=== PATIENT | female | born 1930 | race Asian ===

== ENCOUNTER 2016-11-10 19:30 | Emergency (ER) | payer OTHER ==
[~2016-11-10] VITALS: Ht 170.2 cm; Wt 83.9 kg
[~2016-11-10 19:30] MED LIST: ALLO300T23 PO; CELEBREX200 MG PO; POT CHLORIDE10 ME1 OR; RIVADIS4 TOP; TRIA37.541 PO; VITAMIN D5000 UNIT OR
[2016-11-10 21:20] LABS: PLATELET COUNT 225 K/uL (152-353)
[2016-11-10 21:30] LABS: POTASSIUM 4.7 mmol/L (3.6-5.2)
[2016-11-10 21:55] VITALS: BP 170/84; TEMP 98.7
== END 2016-11-10 21:55 | disposition home or self-care (01) ==
LOC: ED 19:30
PROVIDERS: Specialist
DX: R10.84 Generalized abdominal pain (principal)
CPT/HCPCS: 80048; 85027; 99283

== ENCOUNTER 2017-01-27 14:36 | Outpatient (CLI) | payer OTHER | END 2017-01-27 19:09 | disposition home or self-care (01) | LOC: LAB 14:36 | DX: N39.0 Urinary tract infection, site not specified (principal) | CPT/HCPCS: 81000; 87086; 87088 ==

== ENCOUNTER 2017-05-14 18:38 | Observation (INO) | payer OTHER ==
[~2017-05-14] VITALS: Ht 170.2 cm; Wt 109.5 kg
[2017-05-14 19:08] LABS: POTASSIUM 3.9 mmol/L (3.6-5.2)
[2017-05-14 19:15] VITALS: BP 125/66; TEMP 98.2
[2017-05-14 20:00] VITALS: BP 138/86; TEMP 97.5
[2017-05-14 20:14] LABS: PLATELET COUNT 132 K/uL (152-353)
[2017-05-15] VITALS: BP 142/90; TEMP 98.1
[2017-05-15 01:46] VITALS: BP 138/86; TEMP 97.5; Ht 170.2 cm; Wt 109.5 kg
[2017-05-15 04:00] VITALS: BP 137/85; TEMP 98
[2017-05-15] MEDS ORDERED: K-TAB20 MEQ PO ×2 (04:49)
[2017-05-15] MEDS ORDERED: ALLO300T23 PO ×2 (04:50)
[2017-05-15] MEDS ORDERED: DONE5TAB PO ×2 (04:51)
[2017-05-15 08:00] VITALS: BP 138/78; TEMP 97.8
[2017-05-15 12:00] VITALS: BP 131/81
[2017-05-15 16:00] VITALS: BP 120/73; TEMP 97.3
== END 2017-05-15 18:07 | disposition home or self-care (01) ==
LOC: ED 18:38 → MED/SURG 20:40
PROVIDERS: ADMIT Emergency Medicine
DX: S32.018A Other fracture of first lumbar vertebra, initial encounter for closed fracture (principal); W19.XXXA Unspecified fall, initial encounter; Y93.89 Activity, other specified; Y92.89 Other specified places as the place of occurrence of the external cause; F03.90 Unspecified dementia, unspecified severity, without behavioral disturbance, psychotic disturbance, mood disturbance, and anxiety; I10 Essential (primary) hypertension; R82.99 Other abnormal findings in urine
CPT/HCPCS: 36415; 80053; 81000; 85027; 87086; 87088; 96360; 96361; 99220; 99284; G0378

== ENCOUNTER 2017-05-16 14:46 | Emergency (ER) | payer OTHER ==
[~2017-05-16] VITALS: Ht 170.2 cm; Wt 113.4 kg
[~2017-05-16 14:46] MED LIST changes: +DONE5TAB PO; +K-TAB20 MEQ PO
[2017-05-16 15:13] VITALS: TEMP 98
[2017-05-16 18:00] VITALS: BP 115/73
== END 2017-05-16 18:00 | disposition home or self-care (01) ==
LOC: ED 14:46
DX: G89.29 Other chronic pain (principal); M54.5 Low back pain; M25.562 Pain in left knee
CPT/HCPCS: 99283; J0696; J1885

== ENCOUNTER 2017-05-18 10:00 | Outpatient (CLI) | payer OTHER | END 2017-05-18 10:04 | disposition short-term general hospital (02) | LOC: AMB 10:00 | DX: M54.5 Low back pain (principal) | CPT/HCPCS: A0425; A0427 ==

== ENCOUNTER 2017-05-18 10:07 | Emergency (ER) | payer OTHER ==
[~2017-05-18] VITALS: Ht 170.2 cm; Wt 90.7 kg
[2017-05-18 10:20] VITALS: TEMP 97.7
[2017-05-18 12:01] VITALS: BP 120/76
== END 2017-05-18 12:30 | disposition home or self-care (01) ==
LOC: ED 10:07
DX: M54.5 Low back pain (principal); G89.29 Other chronic pain
CPT/HCPCS: 96372; 99283; J1885

== ENCOUNTER 2017-05-19 15:32 | Outpatient (CLI) | payer OTHER | END 2017-05-19 15:38 | disposition short-term general hospital (02) | LOC: AMB 15:32 | DX: M54.89 Other dorsalgia (principal) | CPT/HCPCS: A0425; A0429 ==

== ENCOUNTER 2017-05-19 15:41 | Observation (INO) | payer OTHER ==
[~2017-05-19] VITALS: Ht 172.7 cm; Wt 109.9 kg
[2017-05-19 16:00] VITALS: BP 115/77; TEMP 98.6
[2017-05-19 18:40] VITALS: BP 115/77; TEMP 98.6; Ht 172.7 cm; Wt 109.9 kg
[2017-05-19 18:41] LABS: PLATELET COUNT 162 K/uL (152-353)
[2017-05-19 18:59] LABS: POTASSIUM 4.2 mmol/L (3.6-5.2)
[2017-05-19 20:00] VITALS: BP 123/79; TEMP 97.7
[2017-05-20] VITALS: BP 115/70; TEMP 98.3
[2017-05-20 04:00] VITALS: BP 120/72; TEMP 98.5
[2017-05-20 08:00] VITALS: BP 131/79; TEMP 97.7
[2017-05-20 12:00] VITALS: BP 113/70; TEMP 97.6
[2017-05-20 16:00] VITALS: BP 117/61; TEMP 98
[2017-05-20 20:00] VITALS: BP 137/91; TEMP 98.3
[2017-05-21] VITALS: BP 119/75; TEMP 97.8
[2017-05-21 04:00] VITALS: BP 128/76; TEMP 97.9
[2017-05-21 08:00] VITALS: BP 115/76; TEMP 97.9
== END 2017-05-21 11:32 | disposition home or self-care (01) ==
LOC: ED 15:41 → MED/SURG 16:00 → EDSTATUS 16:21 → MED/SURG 05-21 11:32
PROVIDERS: Internal Medicine; ADMIT Family Medicine
DX: S32.018A Other fracture of first lumbar vertebra, initial encounter for closed fracture (principal); I10 Essential (primary) hypertension; M15.8 Other polyosteoarthritis; F03.90 Unspecified dementia, unspecified severity, without behavioral disturbance, psychotic disturbance, mood disturbance, and anxiety
CPT/HCPCS: 80053; 81000; 82948; 84134; 85027; 87040; 87210; 96365; 96366; 96375; 99220; G0378; G0379; J1170; J2405; J2930